=== PATIENT | male | born 1985 | race American Indian/Alaskan Native ===

== ENCOUNTER 2021-10-08 22:53 | Emergency (ER) | payer SELFPAY ==
[2021-10-09 02:47] VITALS: BP 148/94
== END 2021-10-09 10:27 | disposition left against medical advice (07) ==
LOC: ED 22:53
DX: T16.9XXA Foreign body in ear, unspecified ear, initial encounter (principal); Z53.21 Procedure and treatment not carried out due to patient leaving prior to being seen by health care provider; X58.XXXA Exposure to other specified factors, initial encounter; Y93.89 Activity, other specified; Y92.89 Other specified places as the place of occurrence of the external cause; Y99.8 Other external cause status